=== PATIENT | female | born 1990 | race Native Hawaiian/Other Pacific Islander ===

== ENCOUNTER 2019-04-23 17:20 | Outpatient (CLI) | payer BC | END 2019-04-23 23:42 | disposition home or self-care (01) | LOC: RAD 17:20 | DX: M54.5 Low back pain (principal); M25.551 Pain in right hip ==

== ENCOUNTER 2020-06-12 23:08 | Emergency (ER) | payer OTHER ==
[~2020-06-12] VITALS: Ht 165.1 cm; Wt 108.9 kg
[2020-06-13 00:43] VITALS: BP 148/88; TEMP 98.1
== END 2020-06-13 00:43 | disposition home or self-care (01) ==
LOC: ED 23:08
DX: K08.89 Other specified disorders of teeth and supporting structures (principal); F17.210 Nicotine dependence, cigarettes, uncomplicated
CPT/HCPCS: 96372; 99284; J0696; J1885